=== PATIENT | male | born 1930 | race Caucasian/White ===

== ENCOUNTER 2016-11-21 21:27 | Emergency (ER) | payer MEDICARE, BC ==
[2016-11-21 21:36] LABS: BASOPHILS % (AUTO) 0 % (0-3); EOSINOPHILS % (AUTO) 4 % (0-9); HEMATOCRIT 38 % (39-53); MEAN CORPUSCULAR HGB CONC 33.8 gm/dl (32.0-36.0); MEAN CORPUSCULAR VOLUME 88 fL (80-100); MONOCYTES % (AUTO) 6.9 % (0-12); NEUTROPHILS % (AUTO) 75.3 % (37-80)
[2016-11-21 21:52] VITALS: TEMP 98.5
[2016-11-21 21:53] LABS: ALBUMIN 3.2 gm/dl (3.4-5.0); ALT 17 IU/L (14-63); CALCIUM 8.6 mg/dl (8.5-10.1); GLOM FILT RATE 59 mL/min (>60); POTASSIUM 4.2 mMol/L (3.5-5.1); SODIUM 132 mMol/L (136-145)
[2016-11-21 22:39] LABS: APPEARANCE,URINE Clear; BILIRUBIN,URINE NEGATIVE (NEGATIVE); COLOR,URINE Yellow; GLUCOSE, URINE (UA) NEGATIVE (NEGATIVE); KETONES,URINE NEGATIVE (NEGATIVE); LEUKOCYTE ESTERASE ,URINE NEGATIVE (NEGATIVE); NITRATE,URINE NEGATIVE (NEGATIVE); OCCULT BLOOD,URINE TRACE INTACT (NEG-TRACE); PH,URINE 5.5; UROBILINOGEN,URINE 0.2 (0.2-1.0 EU)
[2016-11-21 22:51] LABS: RBC,URINE NEG (0-3AV/HPF); WBC,URINE NEG (0-5AV/HPF)
[2016-11-21 23:59] VITALS: BP 143/70; PULSE 63; RESP 22; O2SAT 97
== END 2016-11-21 23:49 | disposition short-term general hospital (02) | DRG 310 ==
LOC: ED 21:27
DX: I49.8 Other specified cardiac arrhythmias (principal); I44.0 Atrioventricular block, first degree; R41.0 Disorientation, unspecified; R29.700 NIHSS score 0; R40.2412 Glasgow coma scale score 13-15, at arrival to emergency department; I45.2 Bifascicular block
CPT/HCPCS: 70450; 80053; 81001; 83880; 84484; 85025; 93005; 99291

== ENCOUNTER 2018-08-28 16:02 | Emergency (ER) | payer MEDICARE, BC ==
[2018-08-28] MEDS ORDERED: PROPARACAINE HCL 0.5% OPHTHALMIC SOL OP ONE (16:14)
[2018-08-28] MEDS ORDERED: TETRACAINE HCL 0.5 % 1 DROP SOL ONE (16:23)
[2018-08-28 16:26] VITALS: RESP 18; TEMP 98.7
[2018-08-28] MEDS ORDERED: [UNRECOGNIZED DRUG - OTHER] OP SCH (16:30)
[2018-08-28] MEDS: BSS/BALANCED SALT SOL OP ONE ×2 (17:00)
[2018-08-28] MEDS ORDERED: SULFACETAMIDE 10% OPHTH 1 DROP SOL OP ONE (17:53)
[2018-08-28] MEDS ORDERED: SULFACETAMIDE 10% OPHTH 1 DROP SOL ONE (17:56)
[2018-08-28 19:04] VITALS: BP 169/87; PULSE 69; O2SAT 97
== END 2018-08-28 18:05 | disposition home or self-care (01) | DRG 125 ==
LOC: ED 16:02
DX: H57.12 Ocular pain, left eye (principal)
CPT/HCPCS: 99282; 99283; A9270-GY